=== PATIENT | male | born 1970 | race Caucasian/White ===

== ENCOUNTER 2023-05-23 09:24 | Emergency (ER) | payer SELFPAY ==
[~2023-05-23] VITALS: Ht 175.3 cm; Wt 68.0 kg
[~2023-05-23 09:24] MED LIST: ANUCORT-HC25 MG RE; CARAFATE1 G1 PO; LISINOP/HCTZ1 TA1 PO; LISINOP/HCTZ1 TAB PO; LORTAB 7.5 OR; LORTAB5 PO; NO; PERCOCET 5/325M1 TAB OR; PRILOSEC20 MG/CAP PO; PRILOSEC40 MG OR; PRILOSEC40 MG PO; PROCTOSOL HC2.5 % RE; TRAZODONE50 MG PO; ZOFRAN ODT8 MG SL
[2023-05-23 09:49] VITALS: BP 154/90
[2023-05-23 10:00] VITALS: BP 148/92
[2023-05-23 10:24] LABS: BASO% 0.4 % (0-3); EOS% 0.6 % (0-8); IMMATURE GRANULOCYTES 0.2 % (0.0-5.0); LYMPH% 13.6 % (15-41); MEAN CELL VOLUME 92.1 fL CALC (80.0-100.0); MEAN CORPUSCULAR HGB 30.6 pG CALC (26.0-32.0); MEAN CORPUSCULAR HGB CONC 33.2 g/dL CAL (32.0-36.0); MONO% 8.5 % (2-13); NEUT# 10.95 thou/uL (1.82-7.42); NEUT% 76.7 % (42-76); RED BLOOD COUNT 4.81 mill/uL (4.70-6.10); RED CELL DISTRI WIDTH 13.1 % (11.5-15.5)
[2023-05-23 10:41] LABS: HEMATOCRIT 44.3 % (39.0-50.0); HEMOGLOBIN 14.7 g/dl (14.0-18.0)
[2023-05-23 10:46] LABS: ANION GAP 15 (6-22 (CALC)); BILIRUBIN, TOTAL 0.8 mg/dL (0.2-1.3); BUN 9 mg/dL (9-20); BUN/CREATININE RATIO 12 (12-20 (CALC)); CARBON DIOXIDE 24 mmol/l (22-30); CHLORIDE 99 mmol/l (95-108); CREATININE 0.8 mg/dL (0.7-1.3); GFR FOR AFR.AMER. > 60 ML/MIN (>=60 (CALC)); GFR OTHER RACES > 60 ML/MIN (>=60 (CALC)); POTASSIUM 4.2 mmol/l (3.5-5.1); SODIUM 134 mmol/l (137-146)
[2023-05-23 11:00] VITALS: BP 157/94
[2023-05-23 11:29] LABS: ALBUMIN 4.3 g/dL (3.2-5.0); ALKALINE PHOSPHATASE 83 u/l (38-126); SGOT/AST 38 u/l (17-59); TOTAL PROTEIN 7.4 g/dL (6.3-8.2)
[2023-05-23] MEDS ORDERED: TRAMADOL HCL50 MG PO (12:12)
[2023-05-23] MEDS ORDERED: VOLTAREN - GENE75 MG PO (12:12)
[2023-05-23] MEDS ORDERED: BACTRIM DS1 TAB PO (12:12)
[2023-05-23 12:38] VITALS: BP 151/95
[2023-05-23 12:42] VITALS: BP 151/95
== END 2023-05-23 12:48 | disposition home or self-care (01) | DRG 552 ==
LOC: ED 09:24
PROVIDERS: Family Medicine
DX: S32.040A Wedge compression fracture of fourth lumbar vertebra, initial encounter for closed fracture (principal); N45.1 Epididymitis; F17.200 Nicotine dependence, unspecified, uncomplicated; X58.XXXA Exposure to other specified factors, initial encounter